=== PATIENT | female | born 1990 | race African-American/Black ===

== ENCOUNTER 2017-03-24 12:03 | Emergency (ER) | payer MEDICAID ==
[~2017-03-24] VITALS: Ht 162.6 cm; Wt 81.6 kg
[2017-03-24] MEDS ORDERED: ONDANSETRON HCL 4 MG/2 ML VIAL IM ONE (13:45)
[2017-03-24] MEDS ORDERED: HYDROmorphone HCL 2 MG/ML VL IM ONE (13:45)
[2017-03-24] MEDS ORDERED: HYDROmorphone HCL 2 MG/ML VL IV ONE ×2 (14:30→15:45)
[2017-03-24] MEDS ORDERED: ONDANSETRON HCL 4 MG/2 ML VIAL IV ONE ×2 (14:30→15:45)
[2017-03-24 17:15] VITALS: BP 122/59
== END 2017-03-24 17:11 | disposition home or self-care (01) ==
LOC: EDBD 12:03 → ER 12:03
DX: S82.141A Displaced bicondylar fracture of right tibia, initial encounter for closed fracture (principal); J45.909 Unspecified asthma, uncomplicated; W01.0XXA Fall on same level from slipping, tripping and stumbling without subsequent striking against object, initial encounter; Y93.89 Activity, other specified; Y99.8 Other external cause status; Y92.098 Other place in other non-institutional residence as the place of occurrence of the external cause
CPT/HCPCS: 29505; 73562; 73700; 96374; 96375; 96376; 99284; J1170; J2405